=== PATIENT | male | born 1970 | race Caucasian/White ===

== ENCOUNTER 2022-07-21 16:58 | Emergency (ER) | payer OTHER, MEDICAID ==
[~2022-07-21] VITALS: Ht 180.3 cm; Wt 81.6 kg
[2022-07-21 17:15] VITALS: BP 164/92
--- NOTE | 2022-07-21 18:35 | NUR ---
PER DR. STEWART PATIENT OKAY TO BE D/C
--- NOTE | 2022-07-21 18:37 | NUR ---
PATIENT BIB [facility]. PATIENT EXAMINED BY DR. STEWART. PATIENT MEDICALLY CLEARED AND RELEASED IN CUSTODY IN STABLE CONDITION. ORIGINAL PRE-BOOK FORM GIVEN TO OFFICER BARBARA.
== END 2022-07-21 18:37 ==
LOC: MED 16:58
DX: E11.22 Type 2 diabetes mellitus with diabetic chronic kidney disease (principal); I12.9 Hypertensive chronic kidney disease with stage 1 through stage 4 chronic kidney disease, or unspecified chronic kidney disease; N18.9 Chronic kidney disease, unspecified; Z02.89 Encounter for other administrative examinations; Z99.2 Dependence on renal dialysis
CPT/HCPCS: 99283